=== PATIENT | female | born 1970 | race Caucasian/White ===

== ENCOUNTER → 2022-08-18 14:56 | Outpatient (BNVA) | payer OTHER, SELFPAY | PROVIDERS: Family Provider Family Medicine; Visit Provider Family Medicine | DX: R53.83 Other fatigue (principal); E03.9 Hypothyroidism, unspecified; M19.90 Unspecified osteoarthritis, unspecified site; M79.10 Myalgia, unspecified site; M25.50 Pain in unspecified joint; L80 Vitiligo | CPT/HCPCS: 80053; 82607; 84443; 85025; 85651; 86140; 86160; 86162; 86235; 86255; 86376 ==

== ENCOUNTER → 2022-10-03 14:36 | Outpatient (BNVA) | payer OTHER, SELFPAY | PROVIDERS: Family Provider Family Medicine; PCP Family Medicine; Visit Provider Family Medicine | DX: E06.3 Autoimmune thyroiditis (principal); E03.9 Hypothyroidism, unspecified; R53.83 Other fatigue; M79.10 Myalgia, unspecified site; R41.89 Other symptoms and signs involving cognitive functions and awareness | CPT/HCPCS: 84436; 84443; 84481 ==

== ENCOUNTER → 2022-11-29 14:12 | Outpatient (BNVA) | payer OTHER, SELFPAY | PROVIDERS: Family Provider Family Medicine; PCP Family Medicine; Visit Provider Family Medicine | DX: E03.9 Hypothyroidism, unspecified (principal); E06.3 Autoimmune thyroiditis | CPT/HCPCS: 84436; 84443; 84481 ==

== ENCOUNTER 2024-09-22 14:25 | Emergency (ER) | payer OTHER, SELFPAY ==
[2024-09-22] VITALS (9 sets, daily range): BP systolic 173–210; BP diastolic 95–138; PULSE 88–100; RESP 16; TEMP 36.8; O2SAT 96–98
--- NOTE | 2024-09-22 14:30 | ECG_ITS ---
[employer] Test Date: 2024-09-22 Pat Name: Avril Méndez Department: Room: Gender: Female Staff Occupational Therapist: : 1970 Requested By: Bev Barrios Order Number: [id number] Reading MD: Measurements Intervals [place] Rate: 88 P: 49 IN: 151 QRS: 50 QRSD: 74 T: 48 QT: 346 QTc: 420 Interpretive Statements SINUS RHYTHM LOW QRS VOLTAGE IN PRECORDIAL LEADS [QRS DEFLECTION < 1.0 mV IN CHEST LEADS] No previous ECG available for comparison [id number]
[2024-09-22 14:59] LABS: Hematocrit 43.2 % (36-47); Hemoglobin 14.20 g/dL (11.27-16.99); Mean Corpuscular HGB Conc 32.9 g/dL (30-55); Mean Corpuscular Hemoglobin 29.2 pg (27-33); Mean Corpuscular Volume 88.7 fl (85-98); Nucleated Red Blood Cells % 0 %; Platelet Count 329 10^3/cmm (157-399); Red Blood Count 4.87 10^6/uL (3.85-5.65); White Blood Count 8.16 10^3/uL (3.29-11.43)
--- NOTE | 2024-09-22 15:08 | ECG_ITS ---
[employer] Test Date: 2024-09-22 Pat Name: Avril Méndez Department: Room: Gender: Female It Security Administrator: : 1970 Requested By: Hunter Sanderson Order Number: [id number] Annabelle MD: Krista Guevara M.D. Measurements Intervals [place] Rate: 88 P: 49 AK: 151 QRS: 50 QRSD: 74 T: 48 QT: 346 QTc: 420 Interpretive Statements SINUS RHYTHM LOW QRS VOLTAGE IN PRECORDIAL LEADS [QRS DEFLECTION < 1.0 mV IN CHEST LEADS] No previous ECG available for comparison Electronically Signed On 09-24-2024 08:16:28 CDT by Krista Guevara M.D. [email or web address] [id number]
--- NOTE | 2024-09-22 15:08 | XRR_ITS ---
PROCEDURE INFORMATION: Exam: XR Chest Exam date and time: 09/22/2024 3:54 PM Age: 54 years old Clinical indication: Other: High BP; Additional info: HTN TECHNIQUE: Imaging protocol: Radiologic exam of the chest. Views: 1 view. Total images: 1 COMPARISON: No relevant prior studies available. FINDINGS: Limitations: The frontal view of the chest is taken in lordotic positioning. Lungs: Unremarkable. No consolidation. Pleural spaces: Unremarkable. No pleural effusion. No pneumothorax. Heart/Mediastinum: Unremarkable. No cardiomegaly. Bones/joints: Unremarkable. XR/XR chest 1V portable [id number] IMPRESSION: No acute cardiopulmonary disease radiographically.
--- NOTE | 2024-09-22 15:14 | W.ED.GENADLT ---
HPI - General Adult General: Chief complaint: General Medical Stated complaint: wild bp swings Time Seen by Provider: 09/22/24 15:08 History of Present Illness: 54 year old female patient presents with concerns about elevated blood pressure readings taken at home. She reports BP measurements ranging from 180/100s to as high as 204/100s, which she began monitoring yesterday after experiencing double vision last week. Patient has a history of hypertension in her twenties that was previously controlled with lifestyle modifications including weight loss and exercise. She reports that arthritis has limited her physical activity in recent years, which may have contributed to gradual weight gain since having her son 13 years ago. Associated symptoms include shortness of breath for quite a while and episodes of double vision. Patient has a complex medical history including reported diagnoses of ankylosing spondylitis, Flavio's thyroiditis, and incidental finding of atherosclerosis in her aorta on a previous imaging study. She expresses frustration with previous medical care, feeling her concerns were dismissed. Patient reports her thyroid medication was increased several months ago. She denies current use of prednisone, though she has taken it in the past. Patient uses a wrist blood pressure monitor that is less than a year old. Related Data Home Medications ?Medication ?Instructions ?Recorded ?Confirmed chaste tree fruit 400 mg capsule 400 mg PO DAILY menstrual cycles 09/22/24 09/22/24 levothyroxine 75 mcg capsule 75 mcg PO QAM 09/22/24 09/22/24 (Tirosint) valerian root 500 mg capsule 500 mg PO DAILY 09/22/24 09/22/24 Previous Rx's ?Medication ?Instructions ?Recorded losartan 25 mg tablet 25 mg PO DAILY #30 tabs 09/22/24 Allergies Allergy/AdvReac Type Severity Reaction Status Date / Time ciprofloxacin (From Cipro) Allergy Intermediate dizziness, Verified 11/29/22 13:48 hand drawing codeine Allergy Intermediate breathing Verified 11/29/22 13:48 problems Review of Systems General: Reports: 10 or more systems reviewed and unremarkable except in HPI and below Physical Exam Const: COMMON NORMALS: no acute distress, patient oriented x3, alert and well nourished HENMT: COMMON NORMALS: normocephalic HEAD & SCALP: normocephalic Eye: COMMON NORMALS: Equal, round and reactive pupils present, EOMs intact bilaterally and conjunctivae normal CONJUNCTIVA: Yes conjunctivae normal PUPIL: Yes Equal, round and reactive pupils present Neck/C-Spine: COMMON NORMALS: full ROM, no lymphadenopathy, supple, no meningeal signs, no JVD and Thyroid normal THYROID: Thyroid normal Resp: COMMON NORMALS: normal respiratory effort, No retractions, No use of accessory muscles, clear to auscultation bilaterally and percussion normal AUSCULTATION: clear to auscultation bilaterally PERCUSSION: percussion normal Cardio: COMMON NORMALS: no JVD GI: COMMON NORMALS: Normal to inspection, nondistended, normoactive bowel sounds present, Soft to palpation, non-tender, No hepatosplenomegaly present, no masses and no bruits PALPATION: Yes Soft to palpation and Yes No hepatosplenomegaly present Extremity: COMMON NORMALS: normal to inspection, full ROM, capillary refill normal, no joint enlargement, no clubbing, cyanosis or edema, no calf tenderness and no pedal edema Neuro: COMMON NORMALS: patient oriented x3 SENSORIUM/ORIENTATION: Yes alert MENINGEAL SIGNS: Yes no meningeal signs Skin: COMMON NORMALS: no rashes or lesions noted, turgor normal and no jaundice GENERAL SKIN EXAM: no rashes or lesions noted and turgor normal Course Vital Signs: Vital signs: Vital Signs Temperature 98.2 F 09/22/24 14:48 Pulse Rate 100 09/22/24 15:10 Respiratory Rate 16 09/22/24 14:48 Blood Pressure 192/98 09/22/24 18:00 Pulse Oximetry 98 09/22/24 17:30 Oxygen Delivery Me thod Room Air 09/22/24 15:10 [facility] - General Adult Medical Decision Making 1. Hypertension, likely uncontrolled - Patient presenting with significantly elevated home BP readings (180-204/100s) with associated symptoms of double vision and shortness of breath. Plan: - Verify accuracy of home readings by comparing with calibrated office equipment - Order comprehensive metabolic panel, lipid panel, and urinalysis to evaluate for end-organ damage and secondary causes - Consider initiating antihypertensive therapy today based on confirmed readings - Recommend DASH diet, sodium restriction, and appropriate physical activity as tolerated with arthritis - Schedule follow-up in 1-2 weeks to reassess BP control 2. Visual disturbances (double vision) - Concerning symptom in setting of hypertension. Plan: - Urgent ophthalmology referral to evaluate for hypertensive retinopathy or other ocular pathology - Consider neuroimaging if symptoms persist or worsen 3. Flavio's thyroiditis - Recently had dose adjustment. Plan: - Obtain recent thyroid function test results - Assess for correlation between thyroid status and BP elevation - Adjust thyroid medication if indicated based on results 4. Reported ankylosing spondylitis and arthritis - Contributing to decreased physical activity. Plan: - Review rheumatology records if available - Discuss physical therapy options and exercise modifications appropriate for condition 5. Reported aortic atherosclerosis - Requires follow-up given cardiovascular risk profile. Plan: - Request previous imaging reports - Consider vascular medicine referral based on findings - Emphasize importance of BP control and cardiovascular risk reduction Differential Diagnosis Discussed differential diagnosis with patient the workup came back for the most part unremarkable except for elevated random cortisol level at 26.5. I discussed this finding with the patient as well as complex workup of hypercortisolism. I told her that further workup was needed confirm the underlying condition of hypercortisolism (and rule out spurious result or pseudo hypercortisolism) and have ongoing evaluation. Lab Data 09/22/24 14:54 09/22/24 14:54 Radiology Impressions Chest X-Ray 09/22/24 15:08 IMPRESSION: No acute cardiopulmonary disease radiographically. Laboratory Results WBC 8.16 10^3/uL (3.29-11.43) 09/22/24 14:54 RBC 4.87 10^6/uL (3.85-5.65) 09/22/24 14:54 Hgb 14.20 g/dL (11.27-16.99) 09/22/24 14:54 Hct 43.2 % (36-47) 09/22/24 14:54 MCV 88.7 fl (85-98) 09/22/24 14:54 MCH 29.2 pg (27-33) 09/22/24 14:54 MCHC 32.9 g/dL (30-55) 09/22/24 14:54 RDW 13.9 % (12.1-15.1) 09/22/24 14:54 Plt Count 329 10^3/cmm (157-399) 09/22/24 14:54 MPV 8.0 fL (7.4-10.4) 09/22/24 14:54 Neut % (Auto) 71.0 % 09/22/24 14:54 Lymph % (Auto) 20.0 % 09/22/24 14:54 [place] % (Auto) 6.7 % 09/22/24 14:54 Eos % (Auto) 1.5 % 09/22/24 14:54 Baso % (Auto) 0.6 % 09/22/24 14:54 Neut # (Auto) 5.79 10^3/uL (1.8-7.7) 09/22/24 14:54 Lymph # (Auto) 1.6 10^3/uL (0.8-4.8) 09/22/24 14:54 [place] # (Auto) 0.6 10^3/uL (0.2-0.9) 09/22/24 14:54 Eos # (Auto) 0.1 10^3/uL (0.0-0.8) 09/22/24 14:54 Baso # (Auto) 0.1 10^3/uL (0.0-0.1) 09/22/24 14:54 Nucleated RBC % (auto) 0 % 09/22/24 14:54 Nucleated RBCs # 0.0 /100WBC 09/22/24 14:54 Sodium 133 mmol/L (136-145) L 09/22/24 14:54 Potassium 3.9 mmol/L (3.5-5.1) 09/22/24 14:54 Chloride 97 mmol/L (98-107) L 09/22/24 14:54 Carbon Dioxide 24 mmol/L (22-29) 09/22/24 14:54 Anion Gap 15.9 (5-19) 09/22/24 14:54 BUN 12 mg/dL (6-20) 09/22/24 14:54 Creatinine 0.8 mg/dL (0.5-0.9) 09/22/24 14:54 GFR Calculation 75.3 mL/min (90-130) L 09/22/24 14:54 Glucose 98 mg/dL (65-115) 09/22/24 14:54 Calculated Osmolality 276 mOsm/kg (285-295) L 09/22/24 14:54 Calcium 9.3 mg/dL (8.5-10.5) 09/22/24 14:54 Magnesium 2.0 mg/dL (1.7-2.3) 09/22/24 14:54 Total Bilirubin 0.3 mg/dL (0.15-1.2) 09/22/24 14:54 AST 14 U/L (0-32) 09/22/24 14:54 ALT 11 U/L (0-33) 09/22/24 14:54 Alkaline Phosphatase 56 U/L (35-105) 09/22/24 14:54 Total Protein 7.4 g/dL (6.6-8.7) 09/22/24 14:54 Albumin 4.3 g/dL (3.5-5.2) 09/22/24 14:54 Globulin 3.1 g/dL (1.3-4.6) 09/22/24 14:54 TSH 3.81 uIU/mL (0.27-4.20) 09/22/24 14:54 Random Cortisol 26.52 ug/dL (2.47-19.5) H 09/22/24 14:54 All radiology interpretation(s) finalized by discharge ED provider radiology interpretation(s): Chest XRAY shows no acute findings. Twelve-lead EKG shows normal sinus rhythm with low voltage Discharge Plan Discharge Patient Disposition: Home Clinical Impression: Elevated cortisol level, Hypertension Condition: Stable Prescriptions: New losartan 25 mg tablet 25 mg PO DAILY Qty: 30 0RF No Action valerian root 500 mg Capsule 500 mg PO DAILY levothyroxine [Tirosint] 75 mcg capsule 75 mcg PO QAM chaste tree fruit 400 mg Capsule 400 mg PO DAILY Discharge Orders: Discharge ED (Routine); Ordered 09/22/24 Ordered By: Hunter Sanderson Referrals: Early,Marya Centeno MD [Primary Care Provider, Family Practice] Discharge Diet: Low Salt Discharge Activity: Resume usual activity Patient Instructions: Opioid Safety, Pain Management, Patient Portal & [place] Instructions Activity Restrictions/Additional Instructions: 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 2. Call PCP tomorrow for follow up and further work up. 3. Return for new or worsening symptoms. Print Language: Persian Coding Level of Care Code ED Mule Spinner for Omkar Rushing
[2024-09-22 15:27] LABS: Alanine Aminotransferase 11 U/L (0-33); Albumin Level 4.3 g/dL (3.5-5.2); Alkaline Phosphatase 56 U/L (35-105); Anion Gap 15.9 (5-19); Aspartate Amino Transferase 14 U/L (0-32); Blood Urea Nitrogen 12 mg/dL (6-20); Calcium 9.3 mg/dL (8.5-10.5); Carbon Dioxide 24 mmol/L (22-29); Chloride 97 mmol/L (98-107); Creatinine Clr Calc Pharmacy 95.7341; Globulin 3.1 g/dL (1.3-4.6); Glucose 98 mg/dL (65-115); Osmolality Calculated 276 mOsm/kg (285-295); Potassium 3.9 mmol/L (3.5-5.1); Sodium 133 mmol/L (136-145); Thyroid Stimulating Hormone 3.81 uIU/mL (0.27-4.20); Total Protein 7.4 g/dL (6.6-8.7)
[2024-09-22 15:54] LABS: Magnesium 2.0 mg/dL (1.7-2.3)
--- OUTSIDE RECORDS SUMMARY | 2024-09-25 07:42 | XMS_ITS | Encounter Summary ---
Author Organization [facility] Address [address] [place] [address] Care Team Providers Care Asbestos Siding Mechanic Name Role Phone Yulisa Segundo MD Primary Care Provider [phone] Encounter Details Date Type Department Care Team (Late st Contact Info) Description 05/27/2015 Ancillary Orders [facility] Medicine [place] [address] [address] Carlos Black MD NO ADDRESS ON FILE Social History Tobacco Use Types Packs/Day Years Used Date Smoking Tobacco: Every Day Smokeless Tobacco: Never Alcohol Use Standard Drinks/Week Comments Not Asked 0 (1 standard drink = 0.6 oz pur e alcohol) Comments No Sex and Gender Information Value Date Recorded Sex Assigned at Not on file Legal Sex Female 9:05 AM CDT Gender Identity Not on file Sexual Orientation Not on file documented as of this encounter Plan of Treatment Not on file documented as of this encounter Visit Diagnoses Not on filedocumented in this encounter Care Teams Asbestos Siding Mechanic Relationship Specialty Start Date End Date Yulisa Segundo MD [address] [address] PCP - General Family Practice 06/01/16 documented as of this encounter
--- OUTSIDE RECORDS SUMMARY | 2024-09-25 07:42 | XMS_ITS | Clinical Summary ---
Author Organization [facility] Address [address] Allison: Epic Prelude ADT TONIA JASMINE [address] Care Team Providers Care Life Insurance Actuary Name Role Phone Unavailable Primary Care Provider Unavailabl e Allergies Active Allergy Reactions Criticality Noted Date Comments Ciprofloxacin Other (See Comments) 06/08/2016 Dizzy, tingling all over, muscle contractions per pt Codeine Unknown 05/27/2015 Given during , unsure of actual reaction but told by physician that she is allergic Medications ALBUTEROL SULFATE INHALATION Take by inhalation. Active meloxicam (MOBIC) 15 mg tablet Take 1 Tablet (15 mg) by mouth daily. 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 Mild intermittent asthma without complication Resolved Problems Problem Noted Date Diagnosed Date Resolved Date Chronic neck and back pain 07/14/2015 1 03/04/2022 Encounters Date Type Department Care Team Description 09/24/2024 External Device Data ST[facility] ABSTRACTION Provider, Abstract 08/28/2024 External Device Data [facility] ABSTRACTION Provider, Abstract 08/27/2024 External Device Data [facility] ABSTRACTION Provider, Abstract 08/06/2024 External Device Data [facility] ABSTRACTION Provider, Abstract 07/31/2024 External Device Data [facility] ABSTRACTION Provider, Abstract 07/04/2024 External Device Data [facility] ABSTRACTION Provider, Abstract 07/03/2024 External Device Data [facility] ABSTRACTION Provider, Abstract 07/02/2024 External Device Data STL ABSTRACTION Provider, Abstract from Last 3 Months Family History Medical History Relation Name Comments Heart Disease Father Hypertension Father Kidney Disease Father Stroke Father Thyroid Disease Father Other Mother Kidney Disease Other 1 states severa l in father's family Thyroid Disease Other 2 states sever al in father's family Relation Name Status Comments Father Mother Alive Other 1 Other 2 Social History Tobacco Use Types Packs/Day Years Used Date Smoking Tobacco: Former Cigarettes Q uit: 06/07/2015 Smokeless Tobacco: Never Tobacco Cessation:Counseling Given: Not Answered Alcohol Use Standard Drinks/Week Comments Yes 0 (1 standard drink = 0.6 oz pur e alcohol) occasionally Comments No Sex and Gender Information Value Date Recorded Sex Assigned at Not on file Legal Sex Female 11:42 PM NCR OPERATOR Gender Identity Not on file Sexual Orientation Not on file Last Filed Vital Signs Vital Sign Reading Time Taken Comments Blood Pressure 136/84 08/22/2023 12:30 PM CDT Pulse 100 08/22/2023 12:30 PM CDT Temperature 37.1 C (98.7 F) 03/03/2023 2:40 PM NCR OPERATOR Respiratory Rate 16 03/03/2023 2:40 PM NCR OPERATOR Oxygen Saturation 98% 08/22/2023 12:30 PM CDT Inhaled Oxygen Concentration - - Weight 95.1 kg (209 lb 9.6 oz) 08/22/2023 12:30 PM CDT Height 167.6 cm (5' 6 ) 08/22/2023 12:30 PM CDT Body Mass Index 33.83 08/22/2023 12:30 PM CDT Plan of Treatment Health Maintenance Due Date Last Done Comments DTAP/TDAP/TD VACCINES (1 - Tdap) 1991 HEPATITIS B VACCINES (1 of 3 - 19+ 3-dose series) 1991 BREAST CANCER SCREENING 2012 COLORECTAL SCREENING 2017 Colorectal Cancer Screening 2017 FIT-DNA Q 3 years 2017 FIT/FOBT Q 1 year 2017 Flex Sig/CT Colonography Q 5 years 2017 PAP SMEAR 06/04/2019 06/03/2016, 05/15, 06/03/2016 CERVICAL CANCER SCREENING 06/03/2021 HPV/Cotest (21-29) 06/03/2021 06/03/2016, 06/03/2016 HPV/Cotest (30-65) 06/03/2021 06/03/2016, 06/03/2016 ZOSTER VACCINE (1 of 2) 2022 INFLUENZA VACCINE (#1) 2024 01/02/2023 Procedures Procedure Name Priority Date/Time Associated Diagnosis Comments CERV/VAG CYTO SCREEN PAP W/HPV Routine 06/03/2016 3:36 PM CDT from Last 3 Months or Most Recently Relevant to Health Maintenance Results * CERV/VAG CYTO SCREEN PAP W/HPV (06/03/2016 3:36 PM CDT) PAP INTERP See Separate Results 06/10/2016 7:58 PM CDT [facility] [employer] [facility] Genital SWAB OF ENDOCERVIX / Unknown Collection / Unknown 06/03/2016 3:36 PM CDT 06/07/2016 9:31 AM CDT Renea Martínez HEALTH INFORMATICS INSTRUCTOR PATHOLOGY/CYTOLOGY ORDDeric ANGEL Final Result [facility] CLIA# [id number] [address] [place] [address] [facility] [employer] [facility] CLIA # [id number] [id number] [place] [address] from Last 3 Months or Most Recently Relevant to Health Maintenance Insurance [facility]
--- OUTSIDE RECORDS SUMMARY | 2024-09-25 07:42 | XMS_ITS | Clinical Summary ---
Author Organization [facility] Address [address] [place] [address] [address] [place] [address] Care Team Providers Care Systems Designer Name Role Phone Yulisa Segundo MD Primary Care Provider [phone] Allergies Active Allergy Reactions Criticality Noted Date Comments Ciprofloxacin Other (See Comments) 06/08/2016 Dizzy, tingling all over, muscle contractions per pt Codeine Unknown 05/27/2015 Given during , unsure of actual reaction but told by physician that she is allergic Medications diclofenac sodium (VOLTAREN) 75 mg Tablet, Delayed Release (E.C.)Indication s:Cervical pain (neck) Take 1 Tablet (75 mg) by mouth 2 times daily. 60 Tablet 1 06/03/2016 Active tiZANidine (ZANAFLEX) 4 mg TabletIndication s:Cervical pain (neck),Chronic neck and back pain Take 1 Tablet (4 mg) by mouth every 8 hours as needed for Spasm. 60 Tablet 1 08/05/2016 Active traMADol (ULTRAM) 50 mg tabletIndication s:Vaginal pain,Pain in rectum,Cervical pain (neck),Chronic neck and back pain Take 1 Tablet (50 mg) by mouth every 6 hours as needed for Pain. 60 Tablet 2 08/05/2016 Active levothyroxine 100 mcg tabletIndication s:Hypothyroidism , unspecified type Take 1 Tablet (100 mcg) by mouth daily shooter helper Take on emply stomach first thing in the morning, no other food or meds for 30 minutes. 30 Tablet 2 11/07/2016 Active Active Problems Problem Noted Date Diagnosed Date Chronic neck and back pain 07/14/2015 Family History Medical History Relation Name Comments Kidney Disease Father Thyroid Disease Father Kidney Disease Other 1 states torie l in father's family Thyroid Disease Other 2 states sever al in father's family Relation Name Status Comments Father Mother Alive Other 1 Other 2 Social History Tobacco Use Types Packs/Day Years Used Date Smoking Tobacco: Former E-Cigarette/Mist Inhalation Device Quit: 06/07/2015 Smokeless Tobacco: Never Alcohol Use Standard Drinks/Week Comments Yes 0 (1 standard drink = 0.6 oz pur e alcohol) occassional Comments No Sex and Gender Information Value Date Recorded Sex Assigned at Not on file Legal Sex Female 9:05 AM CDT Gender Identity Not on file Sexual Orientation Not on file Last Filed Vital Signs Vital Sign Reading Time Taken Comments Blood Pressure 110/74 07/19/2016 12:31 PM CDT Pulse 100 07/01/2016 10:26 AM CDT Temperature 36.9 C (98.5 F) 07/01/2016 10:26 AM CDT Respiratory Rate 20 07/01/2016 10:26 AM CDT Oxygen Saturation 98% 07/01/2016 10:26 AM CDT Inhaled Oxygen Concentration - - Weight 87.1 kg (192 lb) 07/19/2016 12:31 PM CDT Height 168.9 cm (5' 6.5 ) 07/19/2016 12:31 PM CD T Body Mass Index 30.53 07/19/2016 12:31 PM CDT Plan of Treatment Health Maintenance Due Date Last Done Comments Pre-Diabetes and Diabetes Screening 1970 DTAP/TDAP/TD VACCINES (1 - Tdap) 1991 HEPATITIS B VACCINES (1 of 3 - 19+ 3-dose series) 1991 BREAST CANCER SCREENING 2012 COLORECTAL SCREENING 2017 Colorectal Cancer Screening 2017 FIT-DNA Q 3 years 2017 FIT/FOBT Q 1 year 2017 Flex Sig/CT Colonography Q 5 years 2017 PAP SMEAR 06/04/2019 06/03/2016, 06/03/2016 CERVICAL CANCER SCREENING 06/03/2021 HPV/Cotest (21-29) 06/03/2021 06/03/2016 HPV/Cotest (30-65) 06/03/2021 06/03/2016 ZOSTER VACCINE (1 of 2) 2022 INFLUENZA VACCINE (#1) 2024 Procedures Procedure Name Priority Date/Time Associated Diagnosis Comments CERV/VAG CYTO SCREEN PAP W/HPV Routine 06/03/2016 3:36 PM CDT Papanicolaou smear for cervical cancer screening from Last 3 Months or Most Recently Relevant to Health Maintenance Results * CERV/VAG CYTOPATH, THIN PREP SECURITY MESSENGER AND HPV (06/03/2016 3:36 PM CDT) PAP INTERP See Separate Results 06/10/2016 7:58 PM CDT [facility] [employer] [facility] Genital SWAB OF ENDOCERVIX / Unknown Collection / Unknown 06/03/2016 3:36 PM CDT 06/07/2016 9:31 AM CDT Renea Martínez VEHICLE COST ENGINEER PATHOLOGY/CYTOLOGY YUDITH ANGEL Final Result [facility] CLIA# [id number] [address] [place], [place] [id number] from Last 3 Months or Most Recently Relevant to Health Maintenance Insurance [facility] Care Teams Systems Designer Relationship Specialty Start Date End Date Yulisa Segundo MD [address] [facility] [address] [place] [id number] PCP - General Family Practice 06/01/16
--- OUTSIDE RECORDS SUMMARY | 2024-09-25 07:42 | XMS_ITS | Clinical Summary ---
Author Organization [facility] Address [address] [place] [address] Phone Care Team Providers Care Paraplanner Name Role Phone Unavailable Primary Care Provider Unavailabl e Social History Tobacco Use Types Packs/Day Years Used Date Smoking Tobacco: Never Assessed Comments Unknown Sex and Gender Information Value Date Recorded Sex Assigned at Not on file Legal Sex Female 2:07 PM CASE RESOURCE MANAGER Gender Identity Not on file Sexual Orientation Not on file Plan of Treatment Not on file
--- OUTSIDE RECORDS SUMMARY | 2024-09-25 07:42 | XMS_ITS | Encounter Summary ---
Author Organization [facility] Address [address] [place] [address] Care Team Providers Care Jewel Supervisor Name Role Phone Yulisa Segundo MD Primary Care Provider [phone] Encounter Details Date Type Department Care Team (Late st Contact Info) Description 05/27/2015 Ancillary Orders [facility] Medicine [place] [address] [facility] [address] [place] [address] Carlos Black MD NO ADDRESS ON FILE Bilateral hip pain (Primary Dx) Social History Tobacco Use Types Packs/Day Years [...] on file documented as of this encounter Results * XR HIPS BILATERAL 3-4 VIEWS (05/27/2015 12:13 PM CDT) Anatomical Region Laterality Modality Lower Extremity Computed Radiogr aphy 05/27/2015 12:1 3 PM CDT Impressions 05/27/2015 1:53 PM CDT IMPRESSION: 1. Normal bony right and left hip. [id number] Narrative 05/27/2015 1:53 PM CDT Exam: XR HIPS BILATERAL 3-4 VIEWS Date/Time of Exam: 05/27/2015 12:13 PM Reason For Exam: Bilateral hip pain,Bilateral hip pain. Findings: AP and frog-leg lateral projections of the right and left hip demonstrates the hips to be normally articulated. Joint spaces are preserved. Lytic changes are not evident. Trabecular patterns are normal. Superior and inferior pubic rami are intact. Carlos Sharif MD DIAGNOSTIC IMAG ING ORDERABLES Final Result documented in this encounter Visit Diagnoses Diagnosis Bilateral hip pain Pain in joint, pelvic region and thigh Bilateral hip pain- Primary Pain in joint, pelvic region and thigh documented in this encounter Care Teams Jewel Supervisor Relationship Specialty Start Date End Date Yulisa Segundo MD [address] [address] PCP - General Family Practice 06/01/16 documented as of this encounter
--- OUTSIDE RECORDS SUMMARY | 2024-09-25 07:42 | XMS_ITS | Encounter Summary ---
Author Organization [facility] Address [address] [address] Phone Care Team Providers Care Hasher Operator Name Role Phone Juaquin Overton MD Primary Care Provider [phone] Encounter Details Date Type Department Care Team (Late st Contact Info) Description 08/30/2024 Results Follow-Up [facility] [address] [place], [place] [id number] Juaquin Overton MD [address] [place], [place] [id number] Thyroid Stimulating Hormone Social History Tobacco Use Types Packs/Day Years Used Date Smoking Tobacco: Former Cigarettes Smokeless Tobacco: Never Alcohol Use Standard Drinks/Week Comments Yes 0 (1 standard drink = 0.6 oz pur e alcohol) AUDIT-C Answer Date Recorded Q1: How often do you have a drink containing alc ohol? Monthly or less 05/17/2024 Q2: How many drinks containi ng alcohol do you have on a typical day when you are drinking? 1 or 2 05/17/2024 Q3: How often do you have si x or more drinks on one occasion? 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 Gender Identity Not on file Sexual Orientation Not on file documented as of this encounter Plan of Treatment Upcoming Encounters Date Type Department Care Team (Late st Contact Info) Description 09/25/2024 9:30 AM CDT Office Visit [facility] [address] [place] [address] Juaquin Overton MD [address] [place] [address] documented as of this encounter Visit Diagnoses Not on filedocumented in this encounter Care Teams Hasher Operator Relationship Specialty Start Date End Date Juaquin Overton MD [address] [place] [address] PCP - General Family Medicine 05/17/24 documented as of this encounter
--- OUTSIDE RECORDS SUMMARY | 2024-09-25 07:42 | XMS_ITS | Clinical Summary ---
Author Organization [facility] Address [address] [place] [address] Phone Care Team Providers Care Branch Director Name Role Phone Juaquin Overton MD Primary Care Provider [phone] Allergies Active Allergy Reactions Criticality Noted Date Comments Ciprofloxacin Other 06/08/2016 Other Reaction(s): Other (See Comments), Other (See Comments) Dizzy, tingling all over, muscle contractions per pt Codeine 05/27/2015 Other Reaction(s): Unknown, Unknown, Unknown Given during , unsure of actual reaction but told by physician that she is allergic Medications meloxicam (Mobic) 15 mg tablet Take 15 mg by mouth 1 (one) time each day. 4 Active levothyroxine (Tirosint) 75 mcg capsuleIndications :Other specified hypothyroidism Take 1 capsule (75 mcg total) by mouth 1 (one) time each day. 90 capsule 5 Active levothyroxine (Tirosint) 75 mcg capsuleIndications :Other specified hypothyroidism Take 1 capsule (75 mcg total) by mouth 1 (one) time each day. 90 capsule 5 09/02/19 25 Discontin ued(Reord er) Active Problems No known active problems Encounters Date Type Department Care Team Description 09/01/2024 [facility]ill [facility] [address] [id number] Juaquin Overton MD Other specified hypothyroidism 08/30/2024 Results [facility] [address] [address] Juaquin Overton MD Thyroid Stimulating Hormone 08/29/2024 12:05 PM CDT Clinical Support [facility] [address] [facility] [place] [address] Bessie Graves, TATYANA Other specified hypothyroidism from Last 3 Months Family History Medical History Relation Comments Heart disease Father Kidney disease Father Thyroid disease Father Heart disease Maternal Grandmother Arthritis Sister Heart disease Sister Thyroid disease Sister Relation Status Comments Father Maternal Grandmother Mother Alive Sister Social History Tobacco Use Types Packs/Day Years Used Date Smoking Tobacco: Former Cigarettes Smokeless Tobacco: Never Tobacco Cessation:Counseling Given: Not [...] Recorded Patient Health Questionnaire-2 Score 0 05/17/2024 [facility] - Mental Health Answer Date Recorde d Little interest or pleasure in doing things Not at all 05/17/2024 Feeling down, depressed, or hopeless Not at all 05/17/2024 Feeling of Stress Not on file 05/17/2024 Comments Unknown Sex and Gender Information Value Date Recorded Sex Assigned at Not on file 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 Gender Identity Not on file Sexual Orientation Not on file Last Filed Vital Signs Vital Sign Reading Time Taken Comments Blood Pressure 178/116 05/17/2024 9:56 AM CDT Pulse 88 05/17/2024 9:56 AM CDT Temperature 36.9 C (98.4 F) 05/17/2024 9:56 AM CDT Respiratory Rate 16 05/17/2024 9:56 AM CDT Oxygen Saturation 96% 05/17/2024 9:56 AM CDT Inhaled Oxygen Concentration - - Weight 92.4 kg (203 lb 12.8 oz) 05/17/2024 9:56 AM CDT Height 165.1 cm (5' 5 ) 05/17/2024 9:56 AM CDT Body Mass Index 33.91 05/17/2024 9:56 AM CDT Plan of Treatment Upcoming Encounters Date Type Department Care Team (Late st Contact Info) Description 09/25/2024 9:30 AM CDT Office Visit [facility] [address] [place] [address] Juaquin Overton MD [address] [place], [place] [id number] Health Maintenance Due Date Last Done Comments CT Colonography 1972 Colonoscopy 1972 Colorectal Cancer Screening 1972 FIT-DNA 1972 FIT 1972 FOBT 1972 Sigmoidoscopy 1972 MMR Vaccines (1 of 1 - Stand treesa series) 1973 DTaP,Tdap,and Td Vaccines (1 - Tdap) 1979 Varicella Vaccines (1 of 2 - 13+ 2-dose series) 1985 Social Drivers of Health (SDoH) 1990 Hepatitis B Vaccines (1 of 3 - 19+ 3-dose series) 1991 Pneumococcal Vaccine: 50+ Ye ars (1 of 2 - PCV) 1991 Pneumococcal Vaccine (1 of 2 - PCV) 1991 Pap Smear 1993 Cervical Cancer Screening 2002 HPV/Cotest 2002 Mammogram 2012 Zoster Vaccines (1 of 2) 2022 COVID-19 Vaccine ( - 2023-2 5 season) 2023 Influenza Vaccine (#1) 2024 Depression Screening 05/18/2025 05/17/2024 RSV Vaccines (1 - 1-dose 75+ series) 2047 HIB Vaccines Aged Out No longer eligi ble based on patient's age to complete this topic HPV Vaccines Aged Out No longer eligi ble based on patient's age to complete this topic Hepatitis A Vaccines Aged Out No long er eligible based on patient's age to complete this topic IPV Vaccines Aged Out No longer eligi ble based on patient's age to complete this topic Meningococcal B Vaccine Aged Out No l onger eligible based on patient's age to complete this topic Meningococcal Vaccine Aged Out No marysol jeff eligible based on patient's age to complete this topic Rotavirus Vaccines Aged Out No longer eligible based on patient's age to complete this topic Procedures Procedure Name Priority Date/Time Associated Diagnosis Comments THYROID STIMULATING HORMONE Routine 08/29/2024 12:08 PM CDT Other specified hypothyroidism from Last 3 Months Results * Thyroid Stimulating Hormone (08/29/2024 12:08 PM CDT) TSH 2.62 mIU/L [facility] Comment: Reference Range > or = 20 Years 0.40-4.50 Ranges First trimester 0.26-2.66 Second trimester 0.55-2.73 Third trimester 0.43-2.91 Blood Venous blood specimen / Unknown 08/29/2024 12:08 PM CDT 08/30/2024 3:33 AM CDT Narrative Resulting Agency Comment Performing Organization Information: Site ID: [id number] Name: [facility] Address: [address] [place] [address] Director: Rita Thomas MD Juaquin Overton MD LAB BLOOD ORDERABLES Final Res ult [facility] [id number] [place] [address] from Last [address] [place] [address] Care Teams Branch Director Relationship Specialty Start Date End Date Juaquin Overton MD [address] [place] [address] PCP - General Family Medicine 05/17/24
== END 2024-09-22 18:49 | disposition home or self-care (01) ==
PROVIDERS: Emergency Medicine; Emergency Provider Family Medicine; PCP Family Medicine
DX: I10 Essential (primary) hypertension (principal); E06.3 Autoimmune thyroiditis; R94.7 Abnormal results of other endocrine function studies; Z79.890 Hormone replacement therapy; Z79.899 Other long term (current) drug therapy; Z88.5 Allergy status to narcotic agent; Z88.8 Allergy status to other drugs, medicaments and biological substances
CPT/HCPCS: 36415; 71045; 80053; 82533; 83735; 84443; 85025; 93005; 99285; J9999